=== PATIENT | male | born 2000 | race Caucasian/White ===

== ENCOUNTER 2021-02-24 03:10 | Inpatient (IN) ==
[2021-02-24] MEDS ORDERED: SODIUM CHLORIDE 0.9% 1000ML 1,000 ML IV STA (03:23)
[2021-02-24] MEDS ORDERED: MoRPHine SULFATE 4 MG/ML 1 ML CARP\\VIAL IV STA ×2 (03:23→06:10)
[2021-02-24] MEDS ORDERED: ONDANSETRON INJ 2 MG/ML 2 ML VIAL IV STA ×2 (03:23→06:10)
--- NOTE | 2021-02-24 03:27 | Emergency Department Note ---
History of Present Illness General Chief complaint: Abdominal Pain Stated complaint: ABD PAIN FOR 9+ HOURS Time Seen by Provider: 02/24/21 03:16 History of Present Illness Maximum Pain Intensity: 7 This 20-year-old presents to the ER complaining of lower abdominal pain with nausea and vomiting who received the Pfizer vaccine #2 today Location: Lower abdomen Quality: Painful Severity: Moderate Duration: Today Timing: This afternoon Context: Patient was concerned and came in Modifying factors: better with nothing; worse with palpation Patient denies chest pain, dyspnea, fevers, flulike illness, testicular pain, penile pain, urinary symptoms, problems with his bowels. No prior surgeries. Home Medications Medication Instructions Recorded Confirmed Type acetaminophen [Tylenol] 650 mg PO QID PRN 02/24/21 02/24/21 History calcium carbonate [Tums 500] 1,000 mg PO DIRECTED PRN 02/24/21 02/24/21 History Allergies Allergy/AdvReac Type Severity Reaction Status Date / Time No Known Allergies Allergy Verified 02/24/21 04:24 Past Med/Surg History Medical History Acne Surgical History No pertinent past surgical history Social History Smoking Status: Never smoker Preferred Language: Tamazight Communication Ability: Effective Linoleum Layer Required: No Beliefs That Will Affect Care: None Current Living Situation: Family Current Living Situation Comment: lives in dorm Other Information That Helps Us Care for You: No Feels Safe at Home: Yes Safety Concerns: Feels Safe At This Time Assistive Devices: None Review of Systems A total of 10 systems reviewed and were otherwise negative Physical Exam Vital Signs Vital Signs - 24 hr 02/24/21 04:00 02/24/21 04:01 02/24/21 04:30 Pulse Rate 90 91 H 89 Pulse Rate from SpO2 Sensor 89 92 H 89 Respiratory Rate 24 22 22 Blood Pressure 122/84 Blood Pressure Mean 96 Pulse Oximetry 98 97 99 Oxygen Delivery Method Room Air Room Air Room Air 02/24/21 05:00 02/24/21 05:01 02/24/21 05:30 Pulse Rate 86 84 88 Pulse Rate from SpO2 Sensor 88 84 88 Respiratory Rate 15 18 12 Blood Pressure 133/75 Blood Pressure Mean 94 Pulse Oximetry 99 99 98 Oxygen Delivery Method Room Air Room Air Room Air VITALS: Vitals are noted on the nurse's note and reviewed by myself. Vital signs stable. GENERAL: Pleasant male, in no acute distress, nondiaphoretic, well-developed well-nourished. SKIN: Capillary reflex less than 2 seconds. HEENT: Normocephalic. PERRLA. EOMI. Nares patent. Mucous membranes moist. Neck is supple without nuchal rigidity. HEART: Regular rate and rhythm without murmurs gallops or rubs. LUNGS: Clear to auscultation bilaterally without wheezes, rales or rhonchi. No retractions or accessory muscle use. ABDOMEN: Positive bowel sounds x 4. Normal tympanic percussion. Soft, tender to palpation right lower quadrant, without masses or organomegaly. Maciel sign negative. No guarding or rebound tenderness. No CVA tenderness MUSCULOSKELETAL: No gross musculoskeletal defects. NEURO: Patient was alert and oriented to person place and time. No focal neurological deficits. Course Administered Medications Lactated Ringer's (Lr) 1,000 mls @ 100 mls/hr IV .Q10H REPLACED BY [facility] Stop: 03/26/21 08:24 Last Admin: 02/24/21 20:07 Dose: 100 mls/hr Documented by: [id number] Infusion: 02/24/21 19:48 Dose: 100 mls/hr Documented by: [id number] Infusion: 02/24/21 14:21 Dose: 100 mls/hr Documented by: [id number] Infusion: 02/24/21 14:05 Dose: 0 mls/hr Documented by: [id number] Infusion: 02/24/21 13:57 Dose: 100 mls/hr Documented by: [id number] Infusion: 02/24/21 13:30 Dose: 0 mls/hr Documented by: [id number] Admin: 02/24/21 09:05 Dose: 100 mls/hr Documented by: [id number] Pantoprazole Sodium 40 mg/ (Syringe) 10 mls @ 5 mls/min IV DAILY@1100 REPLACED BY [facility] Stop: 03/26/21 10:59 Last Admin: 02/24/21 11:44 Dose: 5 mls/min Documented by: [id number] Promethazine HCl 12.5 mg/ (Sodium Chloride) 50.5 mls @ 202 mls/hr IV Q6H PRN PRN Reason: Nausea And Vomiting Stop: 03/26/21 19:47 Last Infusion: 02/25/21 02:51 Dose: 0 mls/hr Documented by: [id number] Admin: 02/25/21 02:36 Dose: 202 mls/hr Documented by: [id number] Infusion: 02/24/21 20:23 Dose: 0 mls/hr Documented by: [id number] Admin: 02/24/21 20:07 Dose: 202 mls/hr Documented by: [id number] Ketorolac Tromethamine (Ketorolac 30 Mg/Ml Vial) 30 mg IV Q6H PRN PRN Reason: Pain Stop: 03/01/21 13:45 Last Admin: 02/24/21 23:59 Dose: 30 mg Documented by: [id number] Admin: 02/24/21 16:07 Dose: 30 mg Documented by: [id number] Morphine Sulfate (Morphine Sulfate 2 Mg/Ml Carp) 2 mg IV Q3H PRN PRN Reason: Pain Stop: 03/10/21 08:08 Last Admin: 02/24/21 14:22 Dose: 2 mg Documented by: [id number] Admin: 02/24/21 09:11 Dose: 2 mg Documented by: [id number] Morphine Sulfate (Morphine Sulfate 4 Mg/Ml 1 Ml Carp\Vial) 4 mg IV Q3H PRN PRN Reason: severe pain Stop: 03/10/21 12:07 Last Admin: 02/25/21 02:21 Dose: 4 mg Documented by: [id number] Admin: 02/24/21 20:12 Dose: 4 mg Documented by: [id number] Admin: 02/24/21 12:17 Dose: 4 mg Documented by: [id number] Ondansetron HCl (Ondansetron Inj 2 Mg/Ml 2 Ml Vial) 4 mg IV Q6H PRN PRN Reason: Nausea Stop: 03/26/21 09:37 Last Admin: 02/24/21 23:58 Dose: 4 mg Documented by: [id number] Admin: 02/24/21 18:32 Dose: 4 mg Documented by: [id number] Admin: 02/24/21 09:49 Dose: 4 mg Documented by: [id number] Discontinued Medications Sodium Chloride (Nss 1000ml) 1,000 mls @ 999 mls/hr IV .Q1H1M STA Stop: 02/24/21 04:23 Last Infusion: 02/24/21 04:45 Dose: 0 mls/hr Documented by: [id number] Admin: 02/24/21 03:40 Dose: 999 mls/hr Documented by: [id number] Ioversol (Optiray 300 100ml) 100 ml IV ONCE ONE Stop: 02/24/21 04:24 Last Admin: 02/24/21 04:23 Dose: 84 ml Documented by: [id number] Morphine Sulfate (Morphine Sulfate 4 Mg/Ml 1 Ml Carp\Vial) 4 mg IV NOW STA Stop: 02/24/21 03:24 Last Admin: 02/24/21 03:40 Dose: 4 mg Documented by: [id number] Morphine Sulfate (Morphine Sulfate 4 Mg/Ml 1 Ml Carp\Vial) 4 mg IV NOW STA Stop: 02/24/21 06:11 Last Admin: 02/24/21 06:16 Dose: 4 mg Documented by: [id number] Ondansetron HCl (Ondansetron Inj 2 Mg/Ml 2 Ml Vial) 4 mg IV NOW STA Stop: 02/24/21 03:24 Last Admin: 02/24/21 03:40 Dose: 4 mg Documented by: [id number] Ondansetron HCl (Ondansetron Inj 2 Mg/Ml 2 Ml Vial) 4 mg IV NOW STA Stop: 02/24/21 06:11 Last Admin: 02/24/21 06:13 Dose: 4 mg Documented by: [id number] Medical Decision Making Medical Records Attestation: I reviewed the patient's medical records. Home Medications Current Medication List: was personally reviewed by me Laboratory Data Attestation: I reviewed the patient's lab results. Result diagrams: 02/24/21 03:34 02/24/21 08:55 Lab Results 02/24/21 02/24/21 02/24/21 Range/Units 03:34 03:34 03:47 WBC 8.21 (4.8-10.8) K/uL RBC 6.04 (4.7-6.1) M/uL Hgb 15.9 (14.0-18.0) g/dL Hct 45.1 (42-52) % MCV 74.7 L (80-100) fL MCH 26.3 (25-34) pg MCHC 35.3 (32-36) g/dL RDW Std Deviation 35.3 L (36.4-46.3) fL RDW Coeff of Tammy 13.1 (11.5-14.5) % Plt Count 350 (130-400) K/uL MPV 10.2 (7.4-10.4) fL Immature Gran % (Auto) 0.2 % Neut % (Auto) 83.0 % Lymph % (Auto) 4.8 % [place] % (Auto) 11.8 % Eos % (Auto) 0.0 % Baso % (Auto) 0.2 % Neut # (Auto) 6.81 H (1.4-6.5) K/uL Lymph # (Auto) 0.39 L (1.2-3.4) K/uL [place] # (Auto) 0.97 H (0.11-0.59) K/uL Eos # (Auto) 0.00 (0-0.5) K/uL Baso # (Auto) 0.02 (0-0.2) K/uL Immature Gran # (Auto) 0.02 (0.00-0.02) K/uL Toxic Vacuolation 1+ Sodium 136 (136-145) mmol/L Potassium 4.0 (3.5-5.1) mmol/L Chloride 103 (98-107) mmol/L Carbon Dioxide 28 (21-32) mmol/L Anion Gap 5.0 (3-11) BUN 12 (7-18) mg/dl Creatinine 1.03 (0.6-1.4) mg/dl Est Cr Clr Drug Dosing 106.1 ml/min Est GFR ( Amer) 121.5 Est GFR (Non-Af Amer) 104.8 BUN/Creatinine Ratio 11.8 (10-20) Glucose 150 H (70-99) mg/dl Calcium 9.6 (8.5-10.1) mg/dl Total Bilirubin 0.9 (0.2-1) mg/dl AST 22 (15-37) U/L ALT 22 (12-78) U/L Alkaline Phosphatase 99 (45-117) U/L Total Protein 8.3 H (6.4-8.2) gm/dl Albumin 3.8 (3.4-5.0) gm/dl Globulin 4.5 H (2.5-4.0) gm/dl Albumin/Globulin Ratio 0.8 L (0.9-2) Urine Color Yellow Urine Appearance Clear (Clear) Urine pH >= 9.0 H (4.5-7.5) Ur Specific [place] 1.027 (1.000-1.030) Urine Protein Trace H (Negative) Urine Glucose (UA) Negative (Negative) Urine Ketones 1+ H (Negative) Urine Blood Negative (Negative) Urine Nitrite Negative (Negative) Urine Bilirubin Negative (Negative) Urine Urobilinogen Negative (Negative) Ur Leukocyte Esterase Negative (Negative) Urine WBC (Auto) 1-5 (0-5) /hpf Urine RBC (Auto) 0-4 (0-4) /hpf U Hyaline Cast (Auto) 0 (0-5) /lpf U Epithel Cells (Auto) 10-20 H (0-5) /lpf Urine Bacteria (Auto) Negative (Negative) Imaging Data Attestation: I personally reviewed and interpreted this imaging study as follows: MDM Narrative Prior records/ancillary studies reviewed. Triage Nursing notes reviewed. The patient's history was concerning for abdominal pain. Differential diagnosis: Etiologies such as appendicitis, diverticulitis, PUD, biliary pathology, UTI, pancreatitis, obstruction, mesenteric ischemia, aortic pathology, infections, inflammatory bowel disease, renal colic, as well as others were entertained. Physical examination findings: As above. ER treatment provided: An order was placed for continuous cardiac monitoring. The monitor shows a rate of 60-1 20 with a sinus rhythm. IV fluids, Zofran, morphine On reassessment the patient felt better. Diagnostics interpreted by me: The labs revealed stable H&H. Glucose 150. Negative urine No leukocytosis. Imaging studies: CT ABDOMEN & PELVIS With Contrast: Clear lung bases. Normal cardiac size. Normal abdominal viscera. Unremarkable stomach. There are several loops of the mid distal small bowel with foamy debris within the lumen and distended up to a maximum diameter 3.4 cm raising the concern of small bowel obstruction. Differential diagnosis includes enteritis versus malabsorption. Zone of transition is indeterminate and likely within the distal small bowel. If indicated, follow-up with small bowel through may help for more accurate characterization. The appendix is not entirely visualized with visualized portion within normal limits. No signs of acute appendicitis seen. Urinary bladder is decompressed. Trace amount of free fluid within the posterior pelvis. Fullness of the mesenteric lymph nodes which may indicate nonspecific inflammatory response. Radiologist: Solange Max MD Consultation: A consultation was placed with surgery Dr. Tillman. The case was discussed and diagnostics were reviewed. The patient was evaluated in the ER for further treatment. He will admit the patient and request the nurse place an NG tube. Exam and history seem consistent with abdominal pain with concerns for possible small bowel obstruction. Surgery will admit. He is requesting an NG tube. Patient was admitted to the surgical service. By the evaluation outlined above emergent etiologies such as appendicitis, diverticulitis, PUD, biliary pathology, UTI, pancreatitis, mesenteric ischemia, aortic pathology, inflammatory bowel disease, renal colic, as well as others were deemed relatively unlikely. The pt informed about the findings as listed above. All questions were answered and pleased with the treatment. The chart was completed utilizing [employer] Speech voice recognition software. Grammatical errors, random word insertions, pronoun errors, and incomplete sentences are an occassional consequence of this system due to software limitations, ambient noise, and hardware issues. Any formal questions or concerns about the content, text, or information contained within the body of this dictation should be directly addressed to the physician procurement assistant for clarification. Impression & Plan Abdominal pain in male Discharge Plan Visit Data Chief Complaint: Abdominal Pain Stated Complaint: ABD PAIN FOR 9+ HOURS ED Provider: Sarah Orozco ED Midlevel Provider: Staci Pedersen Discharge Problem: Abdominal pain in male Patient Disposition: Admitted As Inpatient Condition: Good Discharge Instructions Interventions: ED Discharge Assessment Last Done: 02/24/21 07:45
[2021-02-24 03:45] LABS: Basophils # (auto) 0.02 K/uL (0-0.2); Basophils % (auto) 0.2 %; Hematocrit (blood only) 45.1 % (42-52); Hemoglobin 15.9 g/dL (14.0-18.0); Immature Granulocytes # (auto) 0.02 K/uL (0.00-0.02); Immature Granulocytes % (auto) 0.2 %; Lymphocytes # (auto) 0.39 K/uL (1.2-3.4); Lymphocytes % (auto) 4.8 %; Mean Corpuscular Hemoglobin 26.3 pg (25-34); Mean Corpuscular Hgb Conc 35.3 g/dL (32-36); Mean Corpuscular Volume 74.7 fL (80-100); Mean Platelet Volume 10.2 fL (7.4-10.4); Monocytes # (auto) 0.97 K/uL (0.11-0.59); Monocytes % (auto) 11.8 %; Neutrophils # (auto) 6.81 K/uL (1.4-6.5); Platelet Count 350 K/uL (130-400); RDW Coefficient of Variation 13.1 % (11.5-14.5); RDW Standard Deviation 35.3 fL (36.4-46.3); Red Blood Count 6.04 M/uL (4.7-6.1); White Blood Count 8.21 K/uL (4.8-10.8)
[2021-02-24 03:57] LABS: Appearance Urine Clear (Clear); Bacteria Urine Automated Negative (Negative); Bilirubin Urine Negative (Negative); Blood Urine Negative (Negative); Cast Urine Automated 0 /lpf (0-5); Color Urine Yellow; Glucose Urine UA Negative (Negative); Ketones Urine 1+ (Negative); Leukocyte Esterase Urine Negative (Negative); Nitrite Urine Negative (Negative); RBC Urine Automated 0-4 /hpf (0-4); Specific Gravity Urine 1.027 (1.000-1.030); Urobilinogen Urine Negative (Negative); pH Urine >= 9.0 (4.5-7.5)
[2021-02-24 04:08] LABS: Albumin Level 3.8 gm/dl (3.4-5.0); BUN Creatinine Ratio 11.8 (10-20); Calcium 9.6 mg/dl (8.5-10.1); Creatinine Clr Calc Pharmacy 106.1 ml/min; Est GFR (African American) 121.5; Est GFR (Non-African American) 104.8
[2021-02-24 04:09] LABS: Toxic Vacuolation 1+
[2021-02-24 04:10] LABS: Albumin Globulin Ratio 0.8 (0.9-2); Bilirubin,Total 0.9 mg/dl (0.2-1); Globulin 4.5 gm/dl (2.5-4.0); Total Protein 8.3 gm/dl (6.4-8.2)
[2021-02-24 04:11] LABS: Protein Urine Trace (Negative)
[2021-02-24] MEDS ORDERED: OPTIRAY 300 100mL IV ONE (04:23)
--- NOTE | 2021-02-24 05:55 | Surgery Consultation ---
Date of Consultation February 24, 2021 Assessment & Plan (1) SBO (small bowel obstruction): pt is a 20 year-old male who presents to ER with 9 hours acute abdominal pain with nausea and vomiting, IMP: acute abdominal pain, SBO, Plan, I recommend to admit pt to hospital, NG tube, small bowel follow through study to R/O internal hernia, IV fluid, control pain, check lactate acid, pt may needs surgery intervention if pt's symptoms are not getting better, D/W possible surgery benefits, risks and alternatives treatment, pt understood, he agrees with the plan, I answered all questions, D/W ER attending. Present on Admission?: Yes (2) Abdominal pain in male: History of Present Illness History of Present Illness CC: acute abdominal pain with nausea and vomiting HPI: pt is a 20 year-old male who presents with ER with 9 hours history acute abdominal pain with nausea and vomiting, pt had dinner last night, pt started have lower abdominal pain after dinner, the pain is 6/10, last BM 2 hours ago, no bloody stool, no diarrhea, T 37.5, no chills, pt had CT scan diagnosis- SBO, otherwise pt is healthy. no PMH with abdominal pain.I got a call for consult SBO.pt had the [email or web address] vaccine #2 yesterday. Allergies Allergy/AdvReac Type Severity Reaction Status Date / Time No Known Allergies Allergy Verified 02/24/21 04:24 Patient History Medical History Acne Surgical History No pertinent past surgical history Social History Smoking Status: Never smoker Preferred Language: Argentine Feels Safe at Home: Yes Review of Systems Review of Systems: All systems reviewed & are unremarkable except as noted in HPI & below Constitutional: as per Subjective / HPI Eyes: as per Subjective / HPI Ear, Nose, Mouth, Throat: as per Subjective / HPI Respiratory: as per Subjective / HPI Cardiovascular: as per Subjective / HPI Gastrointestinal: as per Subjective / HPI Genitourinary: + as per Subjective / HPI Musculoskeletal: as per Subjective / HPI Integumentary: as per Subjective / HPI Neurologic: as per Subjective / HPI Psychiatric: as per Subjective / HPI Endocrine: as per Subjective / HPI Hematologic / Lymphatic: as per Subjective / HPI Allergy / Immunological: as per Subjective / HPI Physical Exam Constitutional: WD/WN, vitals as above well developed and well nourished Eyes: PERRL, conjunctivae normal, anicteric sclerae ENMT: external ear and nose normal, oropharynx normal Neck: trachea midline, no thyromegaly Respiratory: normal respiratory effort, lungs clear to auscultation normal respiratory effort Cardiovascular: RRR, no murmur, no edema Gastrointestinal (Abdomen): Percussion/Palpation: + abdomen tender and abdomen soft tenderness at lower abdomen, no rebound pain, no distend, BS + Musculoskeletal: no cyanosis or clubbing, extremities motor strength 5/5 Skin: no rashes, warm and dry Neurologic: awake Psychiatric: Orientation: alert and oriented x 3 Results & Data ([facility]) Vital Signs (Past 12 Hours) Vital Signs Temp Pulse Resp BP Pulse Ox 02/24/21 05:00 86 15 133/75 99 02/24/21 04:30 89 22 99 02/24/21 04:01 91 H 22 97 02/24/21 04:00 90 24 122/84 98 02/24/21 03:51 90 18 98 02/24/21 03:46 89 17 128/83 100 02/24/21 03:14 37.5 C 106 H 18 135/69 100 Laboratory Results Abnormal lab results 02/24/21 02/24/21 02/24/21 Range/Units 03:34 03:34 03:47 MCV 74.7 L (80-100) fL RDW Std Deviation 35.3 L (36.4-46.3) fL Neut # (Auto) 6.81 H (1.4-6.5) K/uL Lymph # (Auto) 0.39 L (1.2-3.4) K/uL [place] # (Auto) 0.97 H (0.11-0.59) K/uL Glucose 150 H (70-99) mg/dl Total Protein 8.3 H (6.4-8.2) gm/dl Globulin 4.5 H (2.5-4.0) gm/dl Albumin/Globulin Ratio 0.8 L (0.9-2) Urine pH >= 9.0 H (4.5-7.5) Urine Protein Trace H (Negative) Urine Ketones 1+ H (Negative) U Epithel Cells (Auto) 10-20 H (0-5) /lpf Diagnostic Findings CT scan diagnosis- SBO,
--- NOTE | 2021-02-24 06:59 | XRay Report ---
XR KUB/Abdomen 3 views CLINICAL HISTORY: Supine abdomen inferior enteric tube placement COMPARISON STUDY: No previous studies for comparison. FINDINGS: Initial images demonstrate an enteric tube positioned with its tip in the distal esophagus. A subsequent view demonstrates the tube is been advanced and the tip projects over the gastric cardi a. There is gaseous prominence of the bowel. There is renal contrast excretion from prior CT scan. IMPRESSION: The enteric tube is positioned with its tip at the gastric cardia ACT 112: Negative or not required by law. Electronically signed by: Baldemar Cam M.D. 02/24/2021 6:57 AM
[2021-02-24 07:15] LABS: Influenza A virus by PCR Negative (Neg); Influenza B virus by PCR Negative (Neg); RSV by PCR Negative (Neg); SARS CoV2 RNA(COVID-19) InHosp NEGATIVE (Negative)
--- NOTE | 2021-02-24 07:54 | CT Scan Report ---
ABDOMEN AND PELVIS CT WITH IV CONTRAST CT DOSE: 278.19 mGy.cm HISTORY: Right lower quadrant abdominal pain. TECHNIQUE: Multiaxial CT images of the abdomen and pelvis were performed following the use of intrave nous contrast. A dose lowering technique was utilized adhering to the principles of ALARA. COMPARISON STUDY: None. FINDINGS: The lung bases are clear. No pneumoperitoneum. No pneumatosis. No suspicious lytic or blast ic osseous lesions. The liver, gallbladder, spleen, adrenal glands, pancreas, and kidneys are unremar kable. No hydronephrosis. No retroperitoneal lymphadenopathy. Normal caliber abdominal aorta. The mauricio dder is unremarkable. Normal appendix. Trace pelvic free fluid. Mildly thickened versus decompressed terminal ileum. Focal transition point within the distal ileum within the right lower quadrant best i n image 346. The ileal loops proximal to this location are distended and filled with the fecaloid mat erial. The small bowel loops measure up to 3.5 cm in diameter. Therefore, these findings are consiste nt with a small bowel obstruction/partial small bowel obstruction. There is mild mesenteric edema wit hin the dilated loops of bowel within the deep pelvis. A few mildly enlarged mesenteric lymph nodes w ithin the pelvis which may be reactive. The mid to distal colon is decompressed. IMPRESSION: 1. Distended and fluid-filled loops of mid to distal small bowel with a transition point seen within the right lower quadrant at the distal ileum. Therefore, these findings are consistent with a small b owel obstruction/partial small bowel obstruction. 2. Mild thickening within the terminal ileum which may be due to decompression. A nonspecific ileitis remains in the differential diagnosis and could result in the small bowel obstruction. 3. Mild mesenteric edema adjacent to the dilated loops of small bowel within the pelvis with a few mi ldly enlarged mesenteric lymph nodes. This is likely reactive. 4. The visualized appendix is unremarkable. ACT 112: Negative or not required by law. Electronically signed by: Luis Yin M.D. 02/24/2021 7:52 AM
[2021-02-24] MEDS: LACTATED RINGER'S 1,000 ML IV SCH ×2 (09:05→20:07)
[2021-02-24] MEDS: MoRPHine SULFATE 2 MG/ML CARP IV PRN ×2 (09:11→14:22)
[2021-02-24 09:31] LABS: Albumin Level 3.4 gm/dl (3.4-5.0); BUN Creatinine Ratio 9.4 (10-20); Calcium 9.4 mg/dl (8.5-10.1); Creatinine Clr Calc Pharmacy 117.5 ml/min; Est GFR (African American) 137.4; Est GFR (Non-African American) 118.6; Potassium 4.3 mmol/L (3.5-5.1)
[2021-02-24 09:34] LABS: Albumin Globulin Ratio 0.9 (0.9-2); Bilirubin,Total 0.5 mg/dl (0.2-1); Globulin 3.8 gm/dl (2.5-4.0); Total Protein 7.2 gm/dl (6.4-8.2)
[2021-02-24] MEDS: ONDANSETRON INJ 2 MG/ML 2 ML VIAL IV PRN ×3 (09:49→23:58)
[2021-02-24] MEDS: PANTOprazole 40 MG in SYRINGE 0 ML IV SCH (11:44)
--- NOTE | 2021-02-24 12:15 | Surgery Progress Note ---
Date of Service February 24, 2021 Assessment & Plan (1) SBO (small bowel obstruction): Etiology unclear, ? internal hernia SBFT to assess obstruction Lactic acid 1.3 Plan: Continue NGT to LIS, NPO , Bowel rest IV Morphine prn pain IV Zofran prn nausea IV Protonix for gastric prophylaxis will await results of SBFT to determine further management Dr. Tillman has seen and examined pt, agrees with above. 02/24/2021 12:57PM I talked to radiologist, reviewed CT scan and small bowel Follow through, no internal hernia signs, most likely crohn's disease, some small bowel wall thickening, some air in colon, recommend to consult GI doctor to R/O crohn's disease. I met pt's father and Mom at director of front office, they said pt saw GI doctor 2 years ago for possible crohn's disease. pt had normal WBC, normal lactate acid, no emergent surgery indication now, consult GI doctor, repeat KUB in morning, business operations coordinator surgeon cover this weekend, pt and his father and Mom agree with the plan, Admission and Anticipated Discharge Date Admission Date: February 24, 2021 Subjective still having abdominal pain throat pain secondary to the tube not sure when he is going to go down for the small bowel study parents are driving up from [place] Physical Exam Constitutional: WD/WN, vitals as above well developed, well nourished, + thin and cooperative (but uncomfortable due to the NGT); no acute distress, not ill appearing and not in distress Eyes: PERRL, conjunctivae normal, anicteric sclerae ENMT: external ear and nose normal, oropharynx normal Neck: trachea midline, no thyromegaly Respiratory: normal respiratory effort, lungs clear to auscultation normal respiratory effort; no respiratory distress and no labored breathing Cardiovascular: RRR, no murmur, no edema Gastrointestinal (Abdomen): Inspection/Auscultation: abdomen normal to inspection; abdomen not distended Percussion/Palpation: + abdomen tender and abdomen soft; no guarding and abdomen not rigid Musculoskeletal: no cyanosis or clubbing, extremities motor strength 5/5 Skin: no rashes, warm and dry Neurologic: awake Psychiatric: Orientation: alert and oriented x 3 Results & Data ([place]) Vital Signs (Past 12 Hours) Vital Signs Temp Pulse Pulse Resp BP BP Pulse Ox 02/24/21 08:16 37.2 C 99 H 18 121/74 99 02/24/21 08:15 37 C 90 20 127/78 99 02/24/21 07:45 110 H 20 140/86 96 02/24/21 07:02 92 H 16 136/87 97 02/24/21 06:30 84 23 94 02/24/21 06:01 98 H 21 98 02/24/21 06:00 123 H 15 117/79 99 02/24/21 05:30 88 12 98 02/24/21 05:01 84 18 99 02/24/21 05:00 86 15 133/75 99 02/24/21 04:30 89 22 99 02/24/21 04:01 91 H 22 97 02/24/21 04:00 90 24 122/84 98 02/24/21 03:51 90 18 98 02/24/21 03:46 89 17 128/83 100 02/24/21 03:14 37.5 C 106 H 18 135/69 100 Laboratory Results 02/24/21 02/24/21 02/24/21 Range/Units 08:55 08:55 05:55 WBC (4.8-10.8) K/uL RBC (4.7-6.1) M/uL Hgb (14.0-18.0) g/dL Hct (42-52) % MCV (80-100) fL MCH (25-34) pg MCHC (32-36) g/dL RDW Std Deviation (36.4-46.3) fL RDW Coeff of Tammy (11.5-14.5) % Plt Count (130-400) K/uL MPV (7.4-10.4) fL Immature Gran % (Auto) % Neut % (Auto) % Lymph % (Auto) % Grant % (Auto) % Eos % (Auto) % Baso % (Auto) % Neut # (Auto) (1.4-6.5) K/uL Lymph # (Auto) (1.2-3.4) K/uL Grant # (Auto) (0.11-0.59) K/uL Eos # (Auto) (0-0.5) K/uL Baso # (Auto) (0-0.2) K/uL Immature Gran # (Auto) (0.00-0.02) K/uL Toxic Vacuolation Sodium 136 (136-145) mmol/L Potassium 4.3 (3.5-5.1) mmol/L Chloride 104 (98-107) mmol/L Carbon Dioxide 27 (21-32) mmol/L Anion Gap 5.0 (3-11) BUN 9 (7-18) mg/dl Creatinine 0.93 (0.6-1.4) mg/dl Est Cr Clr Drug Dosing 117.5 ml/min Est GFR ( Amer) 137.4 Est GFR (Non-Af Amer) 118.6 BUN/Creatinine Ratio 9.4 L (10-20) Glucose 118 H (70-99) mg/dl Lactate 1.3 (0.4-2.0) mmol/L Calcium 9.4 (8.5-10.1) mg/dl Total Bilirubin 0.5 (0.2-1) mg/dl AST 18 (15-37) U/L ALT 19 (12-78) U/L Alkaline Phosphatase 94 (45-117) U/L Total Protein 7.2 (6.4-8.2) gm/dl Albumin 3.4 (3.4-5.0) gm/dl Globulin 3.8 (2.5-4.0) gm/dl Albumin/Globulin Ratio 0.9 (0.9-2) Urine Color Urine Appearance (Clear) Urine pH (4.5-7.5) Ur Specific [place] (1.000-1.030) Urine Protein (Negative) Urine Glucose (UA) (Negative) Urine Ketones (Negative) Urine Blood (Negative) Urine Nitrite (Negative) Urine Bilirubin (Negative) Urine Urobilinogen (Negative) Ur Leukocyte Esterase (Negative) Urine WBC (Auto) (0-5) /hpf Urine RBC (Auto) (0-4) /hpf U Hyaline Cast (Auto) (0-5) /lpf U Epithel Cells (Auto) (0-5) /lpf Urine Bacteria (Auto) (Negative) COVID-19 Eval Order SARS-CoV-2 (PCR) NEGATIVE (Negative) Influenza Type A (PCR) Negative (Neg) Influenza Type B (PCR) Negative (Neg) RSV (RT-PCR) Negative (Neg) 02/24/21 02/24/21 02/24/21 Range/Units 05:55 03:47 03:34 WBC (4.8-10.8) K/uL RBC (4.7-6.1) M/uL Hgb (14.0-18.0) g/dL Hct (42-52) % MCV (80-100) fL MCH (25-34) pg MCHC (32-36) g/dL RDW Std Deviation (36.4-46.3) fL RDW Coeff of Tammy (11.5-14.5) % Plt Count (130-400) K/uL MPV (7.4-10.4) fL Immature Gran % (Auto) % Neut % (Auto) % Lymph % (Auto) % Grant % (Auto) % Eos % (Auto) % Baso % (Auto) % Neut # (Auto) (1.4-6.5) K/uL Lymph # (Auto) (1.2-3.4) K/uL Grant # (Auto) (0.11-0.59) K/uL Eos # (Auto) (0-0.5) K/uL Baso # (Auto) (0-0.2) K/uL Immature Gran # (Auto) (0.00-0.02) K/uL Toxic Vacuolation Sodium 136 (136-145) mmol/L Potassium 4.0 (3.5-5.1) mmol/L Chloride 103 (98-107) mmol/L Carbon Dioxide 28 (21-32) mmol/L Anion Gap 5.0 (3-11) BUN 12 (7-18) mg/dl Creatinine 1.03 (0.6-1.4) mg/dl Est Cr Clr Drug Dosing 106.1 ml/min Est GFR ( Amer) 121.5 Est GFR (Non-Af Amer) 104.8 BUN/Creatinine Ratio 11.8 (10-20) Glucose 150 H (70-99) mg/dl Lactate (0.4-2.0) mmol/L Calcium 9.6 (8.5-10.1) mg/dl Total Bilirubin 0.9 (0.2-1) mg/dl AST 22 (15-37) U/L ALT 22 (12-78) U/L Alkaline Phosphatase 99 (45-117) U/L Total Protein 8.3 H (6.4-8.2) gm/dl Albumin 3.8 (3.4-5.0) gm/dl Globulin 4.5 H (2.5-4.0) gm/dl Albumin/Globulin Ratio 0.8 L (0.9-2) Urine Color Yellow Urine Appearance Clear (Clear) Urine pH >= 9.0 H (4.5-7.5) Ur Specific [place] 1.027 (1.000-1.030) Urine Protein Trace H (Negative) Urine Glucose (UA) Negative (Negative) Urine Ketones 1+ H (Negative) Urine Blood Negative (Negative) Urine Nitrite Negative (Negative) Urine Bilirubin Negative (Negative) Urine Urobilinogen Negative (Negative) Ur Leukocyte Esterase Negative (Negative) Urine WBC (Auto) 1-5 (0-5) /hpf Urine RBC (Auto) 0-4 (0-4) /hpf U Hyaline Cast (Auto) 0 (0-5) /lpf U Epithel Cells (Auto) 10-20 H (0-5) /lpf Urine Bacteria (Auto) Negative (Negative) COVID-19 Eval Order CovFluRsv at [facility] SARS-CoV-2 (PCR) (Negative) Influenza Type A (PCR) (Neg) Influenza Type B (PCR) (Neg) RSV (RT-PCR) (Neg) 02/24/21 Range/Units 03:34 WBC 8.21 (4.8-10.8) K/uL RBC 6.04 (4.7-6.1) M/uL Hgb 15.9 (14.0-18.0) g/dL Hct 45.1 (42-52) % MCV 74.7 L (80-100) fL MCH 26.3 (25-34) pg MCHC 35.3 (32-36) g/dL RDW Std Deviation 35.3 L (36.4-46.3) fL RDW Coeff of Tammy 13.1 (11.5-14.5) % Plt Count 350 (130-400) K/uL MPV 10.2 (7.4-10.4) fL Immature Gran % (Auto) 0.2 % Neut % (Auto) 83.0 % Lymph % (Auto) 4.8 % Grant % (Auto) 11.8 % Eos % (Auto) 0.0 % Baso % (Auto) 0.2 % Neut # (Auto) 6.81 H (1.4-6.5) K/uL Lymph # (Auto) 0.39 L (1.2-3.4) K/uL Grant # (Auto) 0.97 H (0.11-0.59) K/uL Eos # (Auto) 0.00 (0-0.5) K/uL Baso # (Auto) 0.02 (0-0.2) K/uL Immature Gran # (Auto) 0.02 (0.00-0.02) K/uL Toxic Vacuolation 1+ Sodium (136-145) mmol/L Potassium (3.5-5.1) mmol/L Chloride (98-107) mmol/L Carbon Dioxide (21-32) mmol/L Anion Gap (3-11) BUN (7-18) mg/dl Creatinine (0.6-1.4) mg/dl Est Cr Clr Drug Dosing ml/min Est GFR ( Amer) Est GFR (Non-Af Amer) BUN/Creatinine Ratio (10-20) Glucose (70-99) mg/dl Lactate (0.4-2.0) mmol/L Calcium (8.5-10.1) mg/dl Total Bilirubin (0.2-1) mg/dl AST (15-37) U/L ALT (12-78) U/L Alkaline Phosphatase (45-117) U/L Total Protein (6.4-8.2) gm/dl Albumin (3.4-5.0) gm/dl Globulin (2.5-4.0) gm/dl Albumin/Globulin Ratio (0.9-2) Urine Color Urine Appearance (Clear) Urine pH (4.5-7.5) Ur Specific [place] (1.000-1.030) Urine Protein (Negative) Urine Glucose (UA) (Negative) Urine Ketones (Negative) Urine Blood (Negative) Urine Nitrite (Negative) Urine Bilirubin (Negative) Urine Urobilinogen (Negative) Ur Leukocyte Esterase (Negative) Urine WBC (Auto) (0-5) /hpf Urine RBC (Auto) (0-4) /hpf U Hyaline Cast (Auto) (0-5) /lpf U Epithel Cells (Auto) (0-5) /lpf Urine Bacteria (Auto) (Negative) COVID-19 Eval Order SARS-CoV-2 (PCR) (Negative) Influenza Type A (PCR) (Neg) Influenza Type B (PCR) (Neg) RSV (RT-PCR) (Neg)
[2021-02-24] MEDS: MoRPHine SULFATE 4 MG/ML 1 ML CARP\\VIAL IV PRN ×2 (12:17→20:12)
--- NOTE | 2021-02-24 13:05 | Gastrointestinal Consultation ---
Date of Consultation February 24, 2021 Assessment & Plan (1) SBO (small bowel obstruction): Pt is a 20 y/o male w abd pain, n/v symptoms; found to have SBO on CT exam w transition point on RLQ area at mid to distal ileum. - Bowel rest; NGT to LIS - Avoid narcotics; NSAIDs - Check ESR, CRP - Surgery following - Plan for outpt workup for possible Crohn's disease including colonoscopy evaluation after his SBO has resolved Supervising Physician Co-Signing Physician Notes I performed a history and physical examination of the patient today, including specifically on physical exam - soft abdomen. I have discussed the patient's management with the advanced practitioner. Please refer to the nurse practitioner's note for the documented findings and plan of care. GI consulted for SBO. No FHx of IBD. Has been having diarrhea for some time. Transition point is in mid to distal ileum but not in the terminal ileum or near the ICV hence unfortunately there is no role for GI at this point. Management is pure surgical as he may need resection. Evaluation of IBD is electively as OP if his SBO resolves. Recall GI if needed. History of Present Illness Reason for Consultation: SBO; eval for possible Crohn's disease Requesting Physician: Dr Dinesh Tillman Attending Physician: Dr. Yris Ferreira History of Present Illness Pt is a 20 y/o male w unremarkable past medical history who presented early this morning w c/o lower abdominal pain, n/v. He received Pfizer COVID vaccine #2 yesterday, abd pain symptoms started after dinner last evening. He had BM yesterday, no blood in stools or diarrhea. On evaluation, noted to have signs of SBO on CT scan w transition point on RLQ at distal ileum; mild thickenign on TI may be related to decompression vs non specific ileitis. There are also some mesenteric edema w mildly enlarged mesenteric lymph nodes. Appendix unremarkable. Small bowel xray study in progress. He previously has had GI symptoms, seen a structural rigger at NH area, had l abwork done w/o conclusive diagnosis for IBD. Never had endoscopic evals before. Pt w/o past surgical hx Denies tobacco , + etoh use over weekend, denies illicit drugs. Takes creatine for workout supplements No family hx of IBD or colorectal ca Allergies Allergy/AdvReac Type Severity Reaction Status Date / Time No Known Allergies Allergy Verified 02/24/21 04:24 Home Medications Medication Instructions Recorded Confirmed Type acetaminophen [Tylenol] 650 mg PO QID PRN 02/24/21 02/24/21 History calcium carbonate [Tums 500] 1,000 mg PO DIRECTED PRN 02/24/21 02/24/21 History Patient History Medical History Acne Surgical History No pertinent past surgical history Social History Smoking Status: Never smoker Preferred Language: Burmese Communication Ability: Effective Pearl Hand Required: No Beliefs That Will Affect Care: None Current Living Situation: Family Current Living Situation Comment: lives in dorm Other Information That Helps Us Care for You: No Feels Safe at Home: Yes Safety Concerns: Feels Safe At This Time Assistive Devices: None Review of Systems Review of Systems: All systems reviewed & are unremarkable except as noted in HPI & below Physical Exam Constitutional: WD/WN, vitals as above well groomed and cooperative c/o abd pain Eyes: PERRL, conjunctivae normal, anicteric sclerae ENMT: external ear and nose normal, oropharynx normal Respiratory: normal respiratory effort, lungs clear to auscultation Cardiovascular: RRR, no murmur, no edema Gastrointestinal (Abdomen): Percussion/Palpation: + abdomen tender (generalized ) and abdomen soft BS mosly on L side of abdomen Skin: no rashes, warm and dry no jaundice Psychiatric: A+Ox3, euthymic affect Lymphatic: no lymphedema Results & Data ([facility]) Vital Signs (Past 12 Hours) Vital Signs Temp Pulse Pulse Resp BP BP Pulse Ox 02/24/21 08:16 37.2 C 99 H 18 121/74 99 02/24/21 08:15 37 C 90 20 127/78 99 02/24/21 07:45 110 H 20 140/86 96 02/24/21 07:02 92 H 16 136/87 97 02/24/21 06:30 84 23 94 02/24/21 06:01 98 H 21 98 02/24/21 06:00 123 H 15 117/79 99 02/24/21 05:30 88 12 98 02/24/21 05:01 84 18 99 02/24/21 05:00 86 15 133/75 99 02/24/21 04:30 89 22 99 02/24/21 04:01 91 H 22 97 02/24/21 04:00 90 24 122/84 98 02/24/21 03:51 90 18 98 02/24/21 03:46 89 17 128/83 100 02/24/21 03:14 37.5 C 106 H 18 135/69 100
[2021-02-24] MEDS: KETOROLAC 30 MG/ML VIAL IV PRN ×2 (16:07→23:59)
[2021-02-24] MEDS: PROMETHAZINE HCL 12.5 MG in SODIUM CHLORIDE 0.9% 50 ML IV PRN (20:07)
[2021-02-25] MEDS: MoRPHine SULFATE 4 MG/ML 1 ML CARP\\VIAL IV PRN (02:21)
[2021-02-25] MEDS: PROMETHAZINE HCL 12.5 MG in SODIUM CHLORIDE 0.9% 50 ML IV PRN (02:36)
[2021-02-25] MEDS: LACTATED RINGER'S 1,000 ML IV SCH ×2 (05:55→15:37)
[2021-02-25] MEDS: ONDANSETRON INJ 2 MG/ML 2 ML VIAL IV PRN ×2 (05:55→22:17)
[2021-02-25] MEDS: KETOROLAC 30 MG/ML VIAL IV PRN ×2 (05:55→22:10)
--- NOTE | 2021-02-25 06:09 | Surgery Progress Note ---
Date of Service February 25, 2021 Assessment & Plan (1) SBO (small bowel obstruction): The etiology of patient's small bowel obstruction is unclear and is felt to potentially be related to inflammatory bowel disease such as Crohn's. Patient did have a small bowel follow-through study yesterday which did not show any evidence of internal hernias however some bowel wall thickening was noted. A GI consultation has been obtained. Has been recommended that management continue as directed by the surgical service with any evaluation for inflammatory bowel disease to be performed on elective basis as an outpatient. In light of GI recommendations we will proceed in the following manner: Continue n.p.o. status Continue NG tube. 700 cc of drainage has been noted over the last shift. Continue IV fluid for hydration measures Provide analgesics Provide antiemetics Once patient has return of bowel function consideration will be given to removing NG tube and slowly advancing his diet Admission and Anticipated Discharge Date Admission Date: February 24, 2021 Supervising Physician Co-Signing Physician Notes Patient seen and examined, labs and image reviewed, agree with above. 20-year-old male admitted with suspected small bowel obstruction. He has not passed any flatus though he did feel like he was going to. He does feel better than when he came in but is still uncomfortable. Minimal NG tube output. On exam he is afebrile with stable vitals. His abdomen is soft, nondistended, minimally tender to palpation with no guarding or rebound. Labs unremarkable. Reviewed yesterday small bowel follow-through which did not show contrast entering the colon at 13 hours. Today's KUB was read as contrast not reaching the colon, however on my read I believe that there is some contrast in the right colon. As the patient is slightly improved, we will continue to monitor. We will repeat a KUB in the morning. Continue NG tube and nonoperative management for now. If his symptoms fail to improve or he worsens then we will plan for diagnostic laparoscopy. Subjective Patient denies worsening abdominal pain. He does note one episode of nausea yesterday but is not had any since. He denies any fevers, shakes, chills. He notes he has not had a bowel movement is not passing flatus. Denies shortness of breath. Physical Exam Constitutional: no acute distress Neck: trachea midline Gastrointestinal (Abdomen): Abdomen is soft and nondistended with hypoactive bowel sounds. There is no rebound tenderness or guarding. There is generalized pain with palpation of his abdomen Results & Data ([facility]) Vital Signs (Past 12 Hours) Vital Signs Temp Pulse Resp BP Pulse Ox 02/24/21 23:21 37.3 C 95 H 14 136/84 94 PG Care Time/CCT Total # of Minutes Spent Total Time Spent with Patient: Total time spent is greater than 50% in coordination of care (as documented) at patient's floor/unit and/or counseling patient: Coding Level of Care Code 58139 Subseq Hosp Care Lvl 1 Diagnoses SBO (small bowel obstruction) K56.609
[2021-02-25 06:53] LABS: Basophils # (auto) 0.04 K/uL (0-0.2); Basophils % (auto) 0.5 %; Eosinophils # (auto) 0.01 K/uL (0-0.5); Eosinophils % (auto) 0.1 %; Hematocrit (blood only) 43.1 % (42-52); Hemoglobin 14.3 g/dL (14.0-18.0); Immature Granulocytes # (auto) 0.01 K/uL (0.00-0.02); Immature Granulocytes % (auto) 0.1 %; Lymphocytes # (auto) 1.57 K/uL (1.2-3.4); Lymphocytes % (auto) 20.3 %; Mean Corpuscular Hemoglobin 25.6 pg (25-34); Mean Corpuscular Hgb Conc 33.2 g/dL (32-36); Mean Corpuscular Volume 77.1 fL (80-100); Mean Platelet Volume 9.7 fL (7.4-10.4); Monocytes # (auto) 1.92 K/uL (0.11-0.59); Monocytes % (auto) 24.8 %; Neutrophils # (auto) 4.19 K/uL (1.4-6.5); Neutrophils % (auto) 54.2 %; Platelet Count 311 K/uL (130-400); RDW Coefficient of Variation 13.4 % (11.5-14.5); Red Blood Count 5.59 M/uL (4.7-6.1); White Blood Count 7.74 K/uL (4.8-10.8)
[2021-02-25 07:38] LABS: Calcium 8.4 mg/dl (8.5-10.1); Creatinine Clr Calc Pharmacy 89.5 ml/min; Est GFR (Non-African American) 85.4; Potassium 3.9 mmol/L (3.5-5.1)
[2021-02-25 07:41] LABS: Albumin Globulin Ratio 0.8 (0.9-2); Bilirubin,Total 0.3 mg/dl (0.2-1); C Reactive Protein 2.93 mg/dl (0-0.29); Globulin 3.9 gm/dl (2.5-4.0); Total Protein 6.9 gm/dl (6.4-8.2)
--- NOTE | 2021-02-25 08:02 | XRay Report ---
KUAd CLINICAL HISTORY: SBO COMPARISON STUDY: CT of the abdomen and pelvis and small bowel follow-through February 24, 2021. FINDINGS: Tip of nasogastric tube is within the proximal stomach. There is contrast within the bladde r from recent contrast-enhanced CT. Multiple loops of moderately dilated small bowel are noted. Contr ast does not definitively reach the colon. Moderate amount stool is noted. IMPRESSION: Multiple loops of moderately dilated small bowel. Contrast does not definitively reach t he colon. The findings suggest a persistent small bowel obstruction. ACT 112: Negative or not required by law. Electronically signed by: Klever Rios M.D. 02/25/2021 8:01 AM
--- NOTE | 2021-02-25 09:06 | Fluoroscopy Report ---
FL small bowel follow through CLINICAL HISTORY: Small bowel follow-through. COMPARISON STUDY: CT of the abdomen and pelvis and KUB performed earlier today. FLUOROSCOPY TIME: 0 seconds. FLUOROSCOPIC IMAGES: 0 TECHNIQUE AND FINDINGS: Merchandise Flow Team Member KUB was obtained. Small bowel follow-through was then performed followi ng placement of 300 cc of Optiray 300 diluted with 300 cc of water through the nasogastric tube. The candy cooker helper KUB demonstrates small bowel dilatation. Tip of nasogastric tube is within the proximal stomach . Contrast within the bladder is from recent contrast-enhanced CT. Imaging was carried out for 13 mili rs. Contrast did not reach the colon. These findings represent a small bowel obstruction. IMPRESSION: Persistent small bowel dilatation. Oral contrast did not reach the colon at 13 hours. Th e findings suggest a persistent small bowel obstruction. ACT 112: Negative or not required by law. Electronically signed by: Klever Rios M.D. 02/25/2021 9:05 AM
[2021-02-25] MEDS: PANTOprazole 40 MG in SYRINGE 0 ML IV SCH (11:18)
[2021-02-25] MEDS ORDERED: COUGH DROP (SUGAR FREE) LOZ 24 LOZ/1 BOX BUCCAL PRN (19:38)
[2021-02-25] MEDS ORDERED: hydrOXYzine HCl 25 MG TAB PO PRN (19:38)
[2021-02-26] MEDS: LACTATED RINGER'S 1,000 ML IV SCH ×3 (00:21→19:45)
--- NOTE | 2021-02-26 06:02 | Surgery Progress Note ---
Date of Service February 26, 2021 Assessment & Plan (1) SBO (small bowel obstruction): The etiology of patient's small bowel obstruction is unclear and is felt to potentially be related to inflammatory bowel disease such as Crohn's. Patient did have a small bowel follow-through study on 02/24/21 which did not show any evidence of internal hernias however some bowel wall thickening was noted. A GI consultation has been obtained. Has been recommended that management continue as directed by the surgical service with any evaluation for inflammatory bowel disease to be performed on elective basis as an outpatient. We will continue in the following manner: NG tube drained 1800 cc last 24 hours; as patient has had a bowel movement is passing flatus we will continue removing NG tube If patient tolerates NG tube removal will consider advancing diet beginning with sips of clear liquids We will continue IV fluids until it is certain his oral intake will be adequate Provide analgesics Provide antiemetics Encourage ambulation Admission and Anticipated Discharge Date Admission Date: February 24, 2021 Supervising Physician Co-Signing Physician Notes Patient seen and examined, labs and image reviewed, agree with above. 20-year-old male admitted with suspected small bowel obstruction. The patient has had a bowel movement or 2 and passed some flatus. He feels much better. Still irritated by the NG tube. Minimal NG tube output. On exam he is afebrile with stable vitals. His abdomen is soft, nondistended, minimally tender to pa lpation with no guarding or rebound. Labs unremarkable. Reviewed yesterday small bowel follow-through which did not show contrast entering the colon at 13 hours. Today's KUB shows contrast in the transverse colon with less dilated bowel indicating improving small bowel obstruction. We will clamp his NG tube, and if he tolerates this and his residuals are low then we will remove it advance him to clear liquids. Subjective Patient notes he has not had any nausea vomiting overnight. He does report passing flatus and he has had 2 small bowel movements. He denies worsening abdominal pain. Discussed with RN and she verified the patient did have a bowel movement last night. Physical Exam Constitutional: + thin; no acute distress Gastrointestinal (Abdomen): Abdomen is soft and nondistended. There is minimal pain with palpation. Bowel sounds are present. There is no rebound tenderness or guarding. Results & Data ([facility]) Vital Signs (Past 12 Hours) Vital Signs Temp Pulse Resp BP Pulse Ox 02/25/21 23:40 37.6 C 104 H 16 119/74 95 PG Care Time/CCT Total # of Minutes Spent Total Time Spent with Patient: Total time spent is greater than 50% in coordination of care (as documented) at patient's floor/unit and/or counseling patient: Coding Level of Care Code 92681 Subseq Hosp Care Lvl 1 Diagnoses SBO (small bowel obstruction) K56.609
--- NOTE | 2021-02-26 07:48 | XRay Report ---
KUB CLINICAL HISTORY: Small bowel obstruction. COMPARISON STUDY: KUB February 25, 2021. FINDINGS: Tip of nasogastric tube is within the stomach. Oral contrast from small bowel follow-throug h is now within the colon. Small bowel dilatation has improved. A loop of mildly dilated small bowel within left upper quadrant is noted. IMPRESSION: Findings suggestive of an improving small bowel obstruction. Mild residual small bowel d ilatation, decreased since prior exam. Oral contrast from prior small bowel follow-through has reache d the colon. ACT 112: Negative or not required by law. Electronically signed by: Klever Rios M.D. 02/26/2021 7:47 AM
[2021-02-26] MEDS: KETOROLAC 30 MG/ML VIAL IV PRN (12:41)
[2021-02-26] MEDS: PANTOprazole 40 MG in SYRINGE 0 ML IV SCH (12:41)
[2021-02-27] MEDS: LACTATED RINGER'S 1,000 ML IV SCH (05:34)
--- NOTE | 2021-02-27 08:29 | XRay Report ---
XR KUB/Abdomen 1 view CLINICAL HISTORY: Small bowel obstruction COMPARISON STUDY: 02/26/2021 FINDINGS: There is contrast within nondilated colon. There is no definite small bowel dilatation. The enteric tube is been removed. IMPRESSION: No evidence of pathologic bowel dilatation. Contrast within nondilated colon. ACT 112: Negative or not required by law. Electronically signed by: Baldemar Cam M.D. 02/27/2021 8:28 AM
--- NOTE | 2021-02-27 09:26 | Progress Note ---
Date of Service F/U SBO, doing better, passed 3 times BM, no abdominal pain, no nausea, no vomiting, no fever, thanks GI consult February 27, 2021 Assessment & Plan (1) SBO (small bowel obstruction): Etiology unclear, ? internal hernia SBFT to assess obstruction Lactic acid 1.3 Plan: Continue NGT to LIS, NPO , Bowel rest IV Morphine prn pain IV Zofran prn nausea IV Protonix for gastric prophylaxis will await results of SBFT to determine further management Dr. Tillman has seen and examined pt, agrees with above. 02/24/2021 12:57PM I talked to radiologist, reviewed CT scan and small bowel Follow through, no internal hernia signs, most likely crohn's disease, some small bowel wall thickening, some air in colon, recommend to consult GI doctor to R/O crohn's disease. 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 20-year-old male admitted with suspected small bowel obstruction. The patient has had a bowel movement or 2 and passed some flatus. He feels much better. Still irritated by the NG tube. Minimal NG tube output. On exam he is afebrile with stable vitals. His abdomen is soft, nondistended, minimally tender to palpation with no guarding or rebound. Labs unremarkable. Reviewed yesterday small bowel follow-through which did not show contrast entering the colon at 13 hours. Today's KUB shows contrast in the transverse colon with less dilated bowel indicating improving small bowel obstruction. We will clamp his NG tube, and if he tolerates this and his residuals are low then we will remove it advance him to clear liquids. Subjective Patient notes he has not had any nausea vomiting overnight. He does report passing flatus and he has had 2 small bowel movements. He denies worsening abdominal pain. Discussed with RN and she verified the patient did have a bowel movement last night. Review of Systems Constitutional: as per Subjective / HPI Eyes: as per Subjective / HPI Ear, Nose, Mouth, Throat: as per Subjective / HPI Respiratory: as per Subjective / HPI Cardiovascular: as per Subjective / HPI Gastrointestinal: as per Subjective / HPI Genitourinary: + as per Subjective / HPI Musculoskeletal: as per Subjective / HPI Integumentary: as per Subjective / HPI Neurologic: as per Subjective / HPI Psychiatric: as per Subjective / HPI Endocrine: as per Subjective / HPI Hematologic / Lymphatic: as per Subjective / HPI Allergy / Immunological: as per Subjective / HPI Physical Exam Constitutional: WD/WN, vitals as above well developed, well nourished, + thin and cooperative (but uncomfortable due to the NGT); no acute distress, not ill appearing and not in distress Eyes: PERRL, conjunctivae normal, anicteric sclerae ENMT: external ear and nose normal, oropharynx normal Neck: trachea midline, no thyromegaly Respiratory: normal respiratory effort, lungs clear to auscultation normal respiratory effort; no respiratory distress and no labored breathing Cardiovascular: RRR, no murmur, no edema Gastrointestinal (Abdomen): normal bowel sounds, soft, nontender, no hepatosplenomegaly Inspection/Auscultation: abdomen normal to inspection; abdomen not distended Percussion/Palpation: abdomen soft; no guarding and abdomen not rigid Musculoskeletal: no cyanosis or clubbing, extremities motor strength 5/5 Skin: no rashes, warm and dry Neurologic: awake Psychiatric: Orientation: alert and oriented x 3 Results & Data ([facility]) Vital Signs (Past 12 Hours) Vital Signs Temp Pulse Resp BP Pulse Ox 02/27/21 08:22 36.6 C 85 18 108/66 98 02/26/21 22:41 36.9 C 69 16 100/57 L 98 Diagnostic Findings XR KUB/Abdomen 1 view CLINICAL HISTORY: Small bowel obstruction COMPARISON STUDY: 02/26/2021 FINDINGS: There is contrast within nondilated colon. There is no definite small bowel dilatation. The enteric tube is been removed. IMPRESSION: No evidence of pathologic bowel dilatation. Contrast within nondilated colon.
[2021-02-27] MEDS: PANTOprazole 40 MG in SYRINGE 0 ML IV SCH (11:20)
--- NOTE | 2021-02-28 06:28 | Discharge Summary (DS) ---
ADMITTING DIAGNOSIS: Small bowel obstruction. DISCHARGE DIAGNOSIS: Small-bowel obstruction. DETAILS OF DISCHARGE SUMMARY: This is a 20-year-old gentleman who presented to the ED with acute abdominal pain with nausea and vomiting. On the CT scan, diagnosed with small-bowel obstruction. The patient was admitted to hospital for conservative treatment. N.p.o., IV fluids for the pain and after 2 days the patient passed a bowel movement. The patient tolerated clear diet. No abdominal pain, no nausea, no vomiting. Passed three times stool so far. PHYSICAL EXAMINATION: VITAL SIGNS: Temperature is 36.6, respiratory rate 18, heart rate 85, blood pressure 108/66, O2 saturation 98% on room air. GENERAL: The patient is alert, awake, oriented x3. HEENT: With normal limitation. NEUROLOGIC: Intact. NECK: No JVD. CHEST: Bilateral lung sounds clear. HEART: Normal S1, S2. No murmur. ABDOMEN: Soft, no tenderness. Bowel sounds positive. EXTREMITIES: No edema. DIAGNOSTIC DATA: The patient had a KUB today and shows no bowel obstruction. Oral contrast reached the colon. PLAN: The patient wanted to go home. We gave the patient postop care instructions. We discharged the patient home today.
== END 2021-02-27 12:31 | disposition home or self-care (01) | DRG 390 ==
LOC: ED 03:10 → 3N 05:42
DX: K56.609 Unspecified intestinal obstruction, unspecified as to partial versus complete obstruction